=== PATIENT | male | born 1960 | race Caucasian/White ===

== ENCOUNTER 2018-06-20 12:42 | Inpatient (IN) | payer OTHER ==
[~2018-06-20] VITALS: Ht 185.4 cm; Wt 61.1 kg
--- NOTE | ~2018-06-20 | OP ---
PATIENT NAME: TOMAS EDWARD MEDICAL RECORD: [id number] :58 LOCATION:[facility] D.CV04 ADMISSION DATE:06/20/18 SURGEON: CASEY RUIZ MD DATE OF OPERATION: 06/27/2018 SURGEON: Casey Ruiz MD ANESTHESIA: General, Dr. Olmedo. SUPERVISOR CUSTOMER COMPLAINT SERVICE: Dr. Turk. OPERATION PERFORMED: 1. Right thoracotomy and right middle and lower lobe resection. 2. Flexible fiberoptic bronchoscopy. PREOPERATIVE DIAGNOSIS: Stage IV non-small cell carcinoma, right lung. POSTOPERATIVE DIAGNOSIS: Stage IV non-small cell carcinoma, right lung. INDICATION FOR OPERATION: Paraneoplastic syndrome. FINDINGS OF THE OPERATION: The tumor was adherent to the chest wall, but did not appear to be invading the chest wall. The large tumor was densely adherent to pulmonary artery and pulmonary vein. The tumor also had spread to the level 10 nodes in the hilum. Clinically, the nodes were densely adherent and could not be dissected free of the vascular structures to the upper lobe. The tumor invaded the bronchus of the middle lobe and required a bilobectomy. DESCRIPTION OF PROCEDURE: After informed consent, adequate preoperative medication evaluation, the patient was brought to the operating room, placed on the table in the supine position. After induction of general endotracheal anesthesia and application of appropriate monitoring devices, flexible fiberoptic bronchoscopy and placement of a double lumen tube, the patient was turned in a left lateral decubitus position and the right chest prepped and draped in a sterile field, utilizing Betadine scrub, alcohol, and Betadine solution betadine-impregnated drape was also used. A standard right posterolateral thoracotomy incision was made and dissection carried down the fascia. Hemostasis maintained with electrocautery. The fifth interspace was opened. The tumor had to be dissected free of the chest wall due to adhesions. The tumor did not appear to invade the chest wall. This was done superiorly and inferiorly. The other adhesions in the chest were more easily dissected. The inferior pulmonary ligament was dissected as well as the proximal pulmonary vein. The fissure was opened and attempts made to identify the pulmonary artery were unsuccessful. Attention was then turned toward the hilum and a circumferential incision was made in the parietal pleura. With this, dissection of the inferior bronchus was performed; however, the tumor invaded to the level of the middle lobe. Therefore, the posterior portion of the bronchus intermedius was dissected due to the dense adhesions and dissection near the pulmonary artery. Attention was turned anteriorly and the inferior pulmonary vein was dissected and we were able to divide the lower branch of the inferior pulmonary vein. With this, made the dissection in the hilum a bit easier; however, the vascular structures were adherent to numerous pathologic nodes. Dissection was then carried out anteriorly and the anterior fissure was formed with an Endo-WESLEY stapler. With this, we were able to dissect around the pulmonary artery. Due to the malignancy the pulmonary artery was entered on 3 OPERATIVE REPORT [id number] TOMAS EDWARD different occasions and the holes were closed with 6-0 Prolene sutures. One of the injuries required clamping of the pulmonary hilum. With this, we were able to easily place sutures. Dissection was then carried posteriorly and the bronchus intermedius was dissected further. The bronchus intermedius was eventually surrounded and a TA 34.8 stapler used to divide the bronchus intermedius. Testing of the upper lobe was performed. Attention was then turned back to the pulmonary artery and the pulmonary veins to the middle lobe were also divided with an Endo-WESLEY stapler. The lymph nodes in the hilum were densely adherent to the pulmonary artery; however, we were eventually able to divide the pulmonary artery utilizing #1 silks and 5-0 Prolene suture ligatures. With this divided, we were able to remove the tumor. The lung was inflated and checked for leaks. The areas of leaks were closed with 5-0 Prolene suture and Tesio. The chest was irrigated with copious amounts of antibiotic solution and normal saline. The instrument counts and sponge counts were correct times 2. Two #36 chest tubes were placed, one anteriorly and superiorly and one inferiorly and posteriorly. Chest was again irrigated. Instrument count and sponge counts correct. Chest was closed in layers utilizing #2 Vicryl pericostal sutures, #1 Vicryl on the latissimus dorsi, 2-0 Vicryl on the subcutaneous fascia and skin approximated with skin christie. Sterile dressings were applied. The patient tolerated the procedure well and transferred to the ICU in stable condition. TRANSINT:[id number] Voice Confirmation ID: [id number] DOCUMENT ID: [id number] CASEY RUIZ MD at 1001 CC: [id number] DICTATION DATE: 06/27/18 1534 SINKER WINDER: 06/27/182025 ADM IN [facility] [address] [id number]
--- NOTE | ~2018-06-20 | MORECARE ---
CASE MANAGEMENT DISCHARGE SUMMARY PATIENT: TOMAS EDWARD UNIT: [id number] ADM DATE: 06/20/18 AGE: 57 : 58 SEX: M ROOM/BED: D.2240 AUTHOR: KANCHAN RUTLEDGE PHYSICIAN: REFERRING PHYSICIAN: WENDY ABRAHAM MD DATE OF SERVICE: 06/21/18 Discharge Plan Patient Name: [facility]AS EDWARD [facility] [facility] 1960 Planned Disposition: Home Anticipated Discharge Date: Discharge Date: Expected LOS: Initial Reviewer: [email or web address] Initial Review Date: 06/21/2018 Generated: 06/21/18 11:52 am Patient Name: TOMAS EDWARD Page 61992 at 1052 All edits/amendments must be made on the electronic document DICTATION DATE: 06/21/18 1052 BRIDGE EXPERT: SABINO 06/21/18 1052 RPT#: [id number] DC DATE: STATUS: ADM IN [facility] [address] [place] [address] END OF REPORT
--- NOTE | ~2018-06-20 | MORECARE ---
CASE MANAGEMENT DISCHARGE SUMMARY PATIENT: TOMAS EDWARD UNIT: [id number] ADM DATE: 06/20/18 AGE: 57 : 58 SEX: M ROOM/BED: D.2240 AUTHOR: MATY,DOC PHYSICIAN: REFERRING PHYSICIAN: WENDY ABRAHAM MD DATE OF SERVICE: 06/21/18 Discharge Plan Patient Name: TOMAS EDWARD Facility: [facility]:[place] : 1960 Planned Disposition: Home Anticipated Discharge Date: Discharge Date: Expected LOS: Initial Reviewer: [email or web address] Initial Review Date: 06/21/2018 Generated: 06/21/18 12:40 pm Comments DCP- Discharge Planning Updated by [email or web address]: Tiffany Goode on 06/21/18 10:[address] Patient Name: TOMAS EDWARD Admission Status: Elective Accout number: [id number] Admission Date: 06-20-2018 : 1960 Admission Diagnosis: Attending: WENDY ABRAHAM Current LOS: 1 Anticipated DC Date: Planned Disposition: Home Primary Insurance: [employer] PPO Discharge Planning Comments: CM met with patient and his to discuss discharge planning. States he lives with his in a 2 story home. He is independent with all ADL's and IADL's. States he does not have any DME or need any DME that he knows of right now. I discussed the availability of inpatient rehab, SNF and home health services. States at this time he declines need for home health and plans on returning home with his . No needs identified at this time. CM will continue to follow and assist with discharge planning/needs. Head Bucker: Tiffany Goode DCPIA - Discharge Planning Initial Assessment Updated by [email or web address]: Tiffany Goode on 06/21/18 11:32 am * Is the patient Alert and Oriented? Yes * How many steps to enter\exit or inside your home? 11/06 flight * PCP Dr. Gonzalez * Pharmacy [facility] * Preadmission Environment Home with Family * ADLs Independent * Equipment None * List name and contact numbers for known caregivers / representatives who currently or will assist patient after discharge: Milly - - [phone] * Verbal permission to speak to the caregivers and representatives has been obtained from the patient. Yes * Community resources currently utilized None * Additional services required to return to the preadmission environment? No * Can the patient safely return to the preadmission environment? Yes * Has this patient been hospitalized within the prior 30 days at any hospital? No Last DP export: 06/21/18 10:33 Patient Name: TOMAS EDWARD Page 94064 at 1140 All edits/amendments must be made on the electronic document DICTATION DATE: 06/21/181138 PAPER WRAPPING MACHINE OPERATOR: SABINO 06/21/181138 RPT#: [id number] DC DATE: STATUS: ADM IN [facility] [address] [place] [address] END OF REPORT
--- NOTE | ~2018-06-20 | MORECARE ---
CASE MANAGEMENT DISCHARGE SUMMARY PATIENT: TOMAS EDWARD UNIT: [id number] ADM DATE: 06/20/18 AGE: 57 : 58 SEX: M ROOM/BED: D.2240 AUTHOR: KANCHAN RUTLEDGE PHYSICIAN: REFERRING PHYSICIAN: WENDY ABRAHAM MD DATE OF SERVICE: 06/21/18 Discharge Plan Patient Name: TOMAS EDWARD [facility] [facility] 1960 Planned Disposition: Home Anticipated Discharge Date: Discharge Date: Expected LOS: Initial Reviewer: [email or web address] Initial Review Date: 06/21/2018 Generated: 06/21/18 12:33 pm DCPIA - Discharge Planning Initial Assessment Updated by [email or web address]: Tiffany Goode on 06/21/18 11:32 am * Is the patient Alert and Oriented? Yes * How many steps to enter\exit or inside your home? 11/06 flight * PCP Dr. Gonzalez * Pharmacy [facility] * Preadmission Environment Home with Family * ADLs Independent * Equipment None * List name and contact numbers for known caregivers / representatives who currently or will assist patient after discharge: Milly [facility] - [phone] * Verbal permission to speak to the caregivers and representatives has been obtained from the patient. Yes * Community resources currently utilized None * Additional services required to return to the preadmission environment? No * Can the patient safely return to the preadmission environment? Yes * Has this patient been hospitalized within the prior 30 days at any hospital? No Last DP export: 06/21/18 9:52 Patient Name: TOMAS EDWARD Page 31200 at 1133 All edits/amendments must be made on the electronic document DICTATION DATE: 06/21/18 1133 HOSPICE FELLOW: SABINO 06/21/18 1133 RPT#: [id number] DC DATE: STATUS: ADM IN [facility] [address] [place] [address] END OF REPORT
--- NOTE | ~2018-06-20 | MORECARE ---
CASE MANAGEMENT DISCHARGE SUMMARY PATIENT: TOMAS EDWARD UNIT: [id number] ADM DATE: 06/20/18 AGE: 57 : 58 SEX: M ROOM/BED: D[facility] AUTHOR: MATY,DOC PHYSICIAN: REFERRING PHYSICIAN: WENDY ABRAHAM MD DATE OF SERVICE: 07/11/18 Discharge Plan Patient Name: TOMAS EDWARD Facility: [facility]:[place] : 1960 Planned Disposition: Home Anticipated Discharge Date: Discharge Date: 07/11/2018 Expected LOS: Initial Reviewer: [email or web address] Initial Review Date: 06/21/2018 Generated: 07/11/18 5:00 pm DCP- Discharge Planning Updated by [email or web address]: Tiffany Goode on 06/21/18 10:[address] Patient Name: TOMAS EDWARD Admission Status: Elective Accout number: [id number] Admission Date: 06-20-2018 : 1960 Admission Diagnosis: Attending: WENDY ABRAHAM Current LOS: 1 Anticipated DC Date: Planned Disposition: Home Primary Insurance: [employer] PPO Discharge Planning Comments: CM met with patient and his to discuss discharge planning. States he lives with his in a 2 story home. He is independent with all ADL's and IADL's. States he does not have any DME or need any DME that he knows of right now. I discussed the availability of inpatient rehab, SNF and home health services. States at this time he declines need for home health and plans on returning home with his . No needs identified at this time. CM will continue to follow and assist with discharge planning/needs. Credit Risk Analytics Manager: Tiffany Goode DCPIA - Discharge Planning Initial Assessment Updated by [email or web address]: Tiffany Goode on 06/21/18 11:32 am * Is the patient Alert and Oriented? Yes * How many steps to enter\exit or inside your home? 11/06 flight * PCP Dr. Gonzalez * Pharmacy [facility] [place] * Preadmission Environment Home with Family * ADLs Independent * Equipment None * List name and contact numbers for known caregivers / representatives who currently or will assist patient after discharge: Milly page - [phone] * Verbal permission to speak to the caregivers and representatives has been obtained from the patient. Yes * Community resources currently utilized None * Additional services required to return to the preadmission environment? No * Can the patient safely return to the preadmission environment? Yes * Has this patient been hospitalized within the prior 30 days at any hospital? No Last DP export: 06/21/18 10:40 Patient Name: TOMAS EDWARD Page 11209 at 1600 All edits/amendments must be made on the electronic document DICTATION DATE: 07/11/181558 CONDUCTOR/ENGINEER: SABINO 07/11/181558 RPT#: [id number] DC DATE:07/11/18 STATUS: DIS IN [facility] [address] [place] [address] END OF REPORT
--- NOTE | ~2018-06-20 | OP ---
PATIENT NAME: TOMAS EDWARD MEDICAL RECORD: [id number] :58 LOCATION:[facility].CV04 ADMISSION DATE:06/20/18 SURGEON: DMITRI MALDONADO MD DATE OF OPERATION: 07/06/2018 SURGEON: Dmitri Maldonado MD ANESTHESIA: General, Dr. Linares. OPERATION PERFORMED: Insertion of anterior superior chest tube. PREOPERATIVE DIAGNOSIS: Pneumothorax. POSTOPERATIVE DIAGNOSIS: Pneumothorax. INDICATION FOR OPERATION: Continued air leak status post thoracotomy. FINDINGS OF THE OPERATION: Chest x-ray, satisfactory placement of chest tube. DESCRIPTION OF PROCEDURE: After informed consent, adequate preoperative medication evaluation, the patient was brought to the operating room, placed on the table in the supine position. After induction of general endotracheal anesthesia and application of appropriate monitoring devices, the right chest was prepped and draped in a sterile field utilizing ChloraPrep. The chest was examined. The second interspace identified. A small incision made. A suture placed. Utilizing a 22 trocar, the tube was placed in the anterior superior right hemithorax connected to underwater seal and suction. The tube was secured. The tube was then dressed. Chest x-ray demonstrated good position. The lateral chest tube was removed. The patient tolerated the procedure well and was transferred to the CV ICU in satisfactory condition. TRANSINT:[id number] Voice Confirmation ID: [id number] DOCUMENT ID: [id number] DMITRI MALDONADO MD at 1305 CC: [id number] DICTATION DATE: 07/06/18 1542 CONTROL CLERK FOOD AND BEVERAGE: 07/06/18 1935 DIS IN 07/11/18 [facility] [address] [place] [address]
[2018-06-20 14:40] LABS: BASOPHILS 0.2 % (0-2); EOSINOPHILS 0 % (0-7); HEMOGLOBIN 10.5 g/dL (13.5-17.5); IMMATURE GRANULOCYTES 0.4 % (0-5); LYMPHOCYTES 13.2 % (15-50); MCH 29.3 pg (26.0-34.0); MCHC 32.8 g/dL (31.0-37.0); MCV 89.4 fL (80.0-100.0); MONOCYTES 12.4 % (2-11); NEUTROPHILS 73.8 % (40-80); PLATELET COUNT 113 10x3/uL (130-400); RBC 3.58 10x6/uL (4.20-6.10); RDW 15.3 % (11.5-14.5); WBC 5.1 10x3/uL (4.8-10.8)
[2018-06-20 15:02] LABS: ALBUMIN 2.6 g/dL (3.4-5.0); ALKALINE PHOSPHATASE 230 U/L (46-116); ALT (SGPT) 41 U/L (10-68); BILIRUBIN - TOTAL 0.57 mg/dL (0.2-1.3); CALC OSMOLALITY 258 mosm/kg (275-300); CALCIUM 9.3 mg/dL (8.5-10.1); CARBON DIOXIDE 26.7 mmol/L (21.0-32.0); CHLORIDE - SERUM 92 mmol/L (98-107); CREATININE - SERUM 0.7 mg/dL (0.6-1.3); GLUCOSE 130 mg/dL (74-106); POTASSIUM - SERUM 4.1 mmol/L (3.5-5.1); PROTEIN - SERUM 7.7 g/dL (6.4-8.2); SODIUM 127 mmol/L (136-145); UREA NITROGEN 18 mg/dL (7-18); eGFR NON AFRICAN AMERICAN > 90 mL/min (90-120)
[2018-06-20] MEDS ORDERED: ZOFRAN4 MG PO (16:09)
[2018-06-20] MEDS ORDERED: ACETAMINOPHEN500 M1 PO (16:10)
[2018-06-20] MEDS ORDERED: FOLIC ACID1 MG PO (16:11)
[2018-06-20] MEDS ORDERED: AMOXICILLIN875 MG PO (16:12)
[2018-06-20] MEDS ORDERED: MIRALAX17 GM PO (16:13)
[2018-06-20] MEDS ORDERED: NASACORT10.8 ML NASAL (16:14)
[2018-06-20 16:15] VITALS: BP 137/91; BMI 18.5
[2018-06-20 20:00] VITALS: BP 106/66
[2018-06-21 05:00] VITALS: BP 114/73
[2018-06-21 08:26] VITALS: BP 113/74
[2018-06-21 10:17] VITALS: Ht 185.4 cm; Wt 61.1 kg
[2018-06-21 12:16] VITALS: BP 139/78
[2018-06-21 17:05] VITALS: BP 125/76
[2018-06-21 20:00] VITALS: BP 115/65
[2018-06-22 08:28] VITALS: BP 128/79
[2018-06-22 12:52] VITALS: BP 120/75
[2018-06-22 16:07] VITALS: BP 129/76
[2018-06-22 21:46] VITALS: BP 131/62
[2018-06-23 04:30] LABS: CALC OSMOLALITY 267 mosm/kg (275-300); CALCIUM 8.8 mg/dL (8.5-10.1); CHLORIDE - SERUM 97 mmol/L (98-107); CREATININE - SERUM 0.5 mg/dL (0.6-1.3); POTASSIUM - SERUM 3.4 mmol/L (3.5-5.1); SODIUM 133 mmol/L (136-145); UREA NITROGEN 8 mg/dL (7-18); eGFR NON AFRICAN AMERICAN > 90 mL/min (90-120)
[2018-06-23 04:34] LABS: GLUCOSE 179 mg/dL (74-106)
[2018-06-23 06:38] VITALS: BP 110/68
[2018-06-23 08:23] VITALS: BP 113/74
[2018-06-23 12:14] VITALS: BP 116/73
[2018-06-23 15:39] LABS: CALC OSMOLALITY 273 mosm/kg (275-300); CALCIUM 8.4 mg/dL (8.5-10.1); CARBON DIOXIDE 28.2 mmol/L (21.0-32.0); CHLORIDE - SERUM 97 mmol/L (98-107); CREATININE - SERUM 0.7 mg/dL (0.6-1.3); GLUCOSE 215 mg/dL (74-106); POTASSIUM - SERUM 3.7 mmol/L (3.5-5.1); SODIUM 134 mmol/L (136-145); UREA NITROGEN 13 mg/dL (7-18); eGFR NON AFRICAN AMERICAN > 90 mL/min (90-120)
[2018-06-23 22:09] VITALS: BP 180/65
[2018-06-24 10:45] VITALS: BP 117/72
[2018-06-24 12:31] LABS: BASOPHILS 0 % (0-2); EOSINOPHILS 0 % (0-7); HEMATOCRIT 25.4 % (42.0-54.0); HEMOGLOBIN 8.1 g/dL (13.5-17.5); IMMATURE GRANULOCYTES 0.2 % (0-5); LYMPHOCYTES 16.9 % (15-50); MCH 28.6 pg (26.0-34.0); MCHC 31.9 g/dL (31.0-37.0); MCV 89.8 fL (80.0-100.0); MEAN PLATELET VOLUME 10.2 fL (7.4-10.4); MONOCYTES 9.1 % (2-11); NEUTROPHILS 73.8 % (40-80); PLATELET COUNT 100 10x3/uL (130-400); RBC 2.83 10x6/uL (4.20-6.10); RDW 14.8 % (11.5-14.5); WBC 4.5 10x3/uL (4.8-10.8)
[2018-06-24 16:00] VITALS: BP 144/81
[2018-06-24 21:23] VITALS: BP 136/76
[2018-06-25 05:25] VITALS: BP 133/76
[2018-06-25 06:42] LABS: ALKALINE PHOSPHATASE 220 U/L (46-116); ALT (SGPT) 97 U/L (10-68); BILIRUBIN - TOTAL 0.23 mg/dL (0.2-1.3); CALCIUM 8.5 mg/dL (8.5-10.1); CARBON DIOXIDE 28.1 mmol/L (21.0-32.0); CHLORIDE - SERUM 99 mmol/L (98-107); CREATININE - SERUM 0.7 mg/dL (0.6-1.3); POTASSIUM - SERUM 3.4 mmol/L (3.5-5.1); PROTEIN - SERUM 6.7 g/dL (6.4-8.2); SODIUM 134 mmol/L (136-145); eGFR NON AFRICAN AMERICAN > 90 mL/min (90-120)
[2018-06-25 06:47] LABS: CALC OSMOLALITY 268 mosm/kg (275-300); GLUCOSE 156 mg/dL (74-106); UREA NITROGEN 8 mg/dL (7-18)
[2018-06-25 08:27] VITALS: BP 151/72
[2018-06-25 10:45] LABS: BASOPHILS 0.3 % (0-2); EOSINOPHILS 0 % (0-7); HEMOGLOBIN 8.3 g/dL (13.5-17.5); IMMATURE GRANULOCYTES 0.3 % (0-5); LYMPHOCYTES 22.7 % (15-50); MCH 29.2 pg (26.0-34.0); MCHC 31.9 g/dL (31.0-37.0); MCV 91.5 fL (80.0-100.0); MEAN PLATELET VOLUME 10.1 fL (7.4-10.4); MONOCYTES 7.1 % (2-11); NEUTROPHILS 69.6 % (40-80); PLATELET COUNT 113 10x3/uL (130-400); RBC 2.84 10x6/uL (4.20-6.10); RDW 15.5 % (11.5-14.5)
[2018-06-25 11:14] VITALS: BP 155/76
[2018-06-25 20:00] VITALS: BP 120/69
[2018-06-26] VITALS: BP 116/65
[2018-06-26 04:00] VITALS: BP 130/77
[2018-06-26 05:57] LABS: BASOPHILS 0 % (0-2); EOSINOPHILS 0 % (0-7); HEMATOCRIT 26.6 % (42.0-54.0); HEMOGLOBIN 8.4 g/dL (13.5-17.5); IMMATURE GRANULOCYTES 0.2 % (0-5); LYMPHOCYTES 16.3 % (15-50); MCH 28.5 pg (26.0-34.0); MCHC 31.6 g/dL (31.0-37.0); MCV 90.2 fL (80.0-100.0); MEAN PLATELET VOLUME 9.9 fL (7.4-10.4); MONOCYTES 8.6 % (2-11); NEUTROPHILS 74.9 % (40-80); RBC 2.95 10x6/uL (4.20-6.10); RDW 15.3 % (11.5-14.5)
[2018-06-26 06:27] LABS: PLATELET COUNT 147 10x3/uL (130-400); WBC 5.5 10x3/uL (4.8-10.8)
[2018-06-26 06:40] LABS: ALKALINE PHOSPHATASE 197 U/L (46-116); ALT (SGPT) 102 U/L (10-68); BILIRUBIN - TOTAL 0.19 mg/dL (0.2-1.3); CALC OSMOLALITY 274 mosm/kg (275-300); CALCIUM 8.7 mg/dL (8.5-10.1); CHLORIDE - SERUM 101 mmol/L (98-107); CREATININE - SERUM 0.6 mg/dL (0.6-1.3); GLUCOSE 149 mg/dL (74-106); POTASSIUM - SERUM 3.8 mmol/L (3.5-5.1); PROTEIN - SERUM 6.6 g/dL (6.4-8.2); SODIUM 137 mmol/L (136-145); UREA NITROGEN 6 mg/dL (7-18); eGFR NON AFRICAN AMERICAN > 90 mL/min (90-120)
[2018-06-26 08:12] VITALS: BP 147/85
[2018-06-26] MEDS ORDERED: PREDNISONE10 MG PO (10:30)
[2018-06-26] MEDS ORDERED: CIPRO500 MG PO (10:30)
[2018-06-26 15:20] LABS: HEMATOCRIT 26.7 % (42.0-54.0); HEMOGLOBIN 8.4 g/dL (13.5-17.5); MCH 28.4 pg (26.0-34.0); MCHC 31.5 g/dL (31.0-37.0); MCV 90.2 fL (80.0-100.0); RBC 2.96 10x6/uL (4.20-6.10); RDW 15.3 % (11.5-14.5); WBC 5.3 10x3/uL (4.8-10.8)
[2018-06-26 15:33] LABS: ALBUMIN 2.2 g/dL (3.4-5.0); ALKALINE PHOSPHATASE 199 U/L (46-116); ALT (SGPT) 91 U/L (10-68); BILIRUBIN - TOTAL 0.19 mg/dL (0.2-1.3); CALC OSMOLALITY 273 mosm/kg (275-300); CALCIUM 8.4 mg/dL (8.5-10.1); CARBON DIOXIDE 29.5 mmol/L (21.0-32.0); CHLORIDE - SERUM 100 mmol/L (98-107); CREATININE - SERUM 0.7 mg/dL (0.6-1.3); GLUCOSE 153 mg/dL (74-106); POTASSIUM - SERUM 3.4 mmol/L (3.5-5.1); PROTEIN - SERUM 6.9 g/dL (6.4-8.2); SODIUM 137 mmol/L (136-145); UREA NITROGEN 5 mg/dL (7-18); eGFR NON AFRICAN AMERICAN > 90 mL/min (90-120)
[2018-06-26 15:46] LABS: APTT 27.7 SECONDS (22.8-39.4); INR 1.21 (0.85-1.17)
[2018-06-26 16:10] VITALS: BP 134/76
[2018-06-26 19:13] LABS: APPEARANCE CLEAR (CLEAR); BILIRUBIN NEGATIVE (NEGATIVE); COLOR YELLOW (YELLOW); GLUCOSE NEGATIVE (NEGATIVE); KETONE NEGATIVE (NEGATIVE); NITRITE NEGATIVE (NEGATIVE); PROTEIN NEGATIVE (NEGATIVE); UROBILINOGEN NORMAL (NORMAL)
[2018-06-26 20:00] VITALS: BP 114/53
[2018-06-27] VITALS (40 sets, daily range): BP systolic 87–155; BP diastolic 51–99
[2018-06-28] VITALS (44 sets, daily range): BP systolic 93–138; BP diastolic 49–87
[2018-06-28 06:38] LABS: HEMATOCRIT 29.7 % (42.0-54.0); HEMOGLOBIN 9.8 g/dL (13.5-17.5); MCH 28.8 pg (26.0-34.0); MEAN PLATELET VOLUME 10.2 fL (7.4-10.4); RBC 3.4 10x6/uL (4.20-6.10); RDW 16.4 % (11.5-14.5); WBC 5.8 10x3/uL (4.8-10.8)
[2018-06-28 06:39] LABS: MCV 87.4 fL (80.0-100.0)
[2018-06-28 06:57] LABS: ALBUMIN 1.9 g/dL (3.4-5.0); ALKALINE PHOSPHATASE 112 U/L (46-116); BILIRUBIN - TOTAL 0.67 mg/dL (0.2-1.3); CARBON DIOXIDE 31.1 mmol/L (21.0-32.0); CHLORIDE - SERUM 102 mmol/L (98-107); CREATININE - SERUM 0.8 mg/dL (0.6-1.3); GLUCOSE 111 mg/dL (74-106); PROTEIN - SERUM 5.5 g/dL (6.4-8.2); SODIUM 138 mmol/L (136-145); eGFR NON AFRICAN AMERICAN > 90 mL/min (90-120)
[2018-06-28 06:59] LABS: ALT (SGPT) 40 U/L (10-68); CALC OSMOLALITY 277 mosm/kg (275-300); POTASSIUM - SERUM 4.4 mmol/L (3.5-5.1); UREA NITROGEN 14 mg/dL (7-18)
[2018-06-29] VITALS (24 sets, daily range): BP systolic 110–145; BP diastolic 51–91
[2018-06-29 06:41] LABS: HEMATOCRIT 29.1 % (42.0-54.0); HEMOGLOBIN 9.3 g/dL (13.5-17.5); MCH 28.5 pg (26.0-34.0); MCV 89.3 fL (80.0-100.0); MEAN PLATELET VOLUME 9.6 fL (7.4-10.4); RBC 3.26 10x6/uL (4.20-6.10); RDW 16.4 % (11.5-14.5); WBC 5.2 10x3/uL (4.8-10.8)
[2018-06-29 06:47] LABS: ALBUMIN 1.9 g/dL (3.4-5.0); ALKALINE PHOSPHATASE 118 U/L (46-116); ALT (SGPT) 40 U/L (10-68); BILIRUBIN - TOTAL 0.24 mg/dL (0.2-1.3); CARBON DIOXIDE 32.9 mmol/L (21.0-32.0); CHLORIDE - SERUM 99 mmol/L (98-107); CREATININE - SERUM 0.6 mg/dL (0.6-1.3); POTASSIUM - SERUM 4.6 mmol/L (3.5-5.1); PROTEIN - SERUM 5.7 g/dL (6.4-8.2); SODIUM 134 mmol/L (136-145); eGFR NON AFRICAN AMERICAN > 90 mL/min (90-120)
[2018-06-29 06:48] LABS: CALC OSMOLALITY 273 mosm/kg (275-300); GLUCOSE 226 mg/dL (74-106); UREA NITROGEN 10 mg/dL (7-18)
[2018-06-30] VITALS (24 sets, daily range): BP systolic 98–151; BP diastolic 61–92
[2018-06-30 06:10] LABS: HEMATOCRIT 30.2 % (42.0-54.0); HEMOGLOBIN 9.7 g/dL (13.5-17.5); MCHC 32.1 g/dL (31.0-37.0); MCV 90.1 fL (80.0-100.0); MEAN PLATELET VOLUME 9.6 fL (7.4-10.4); RBC 3.35 10x6/uL (4.20-6.10); RDW 16.4 % (11.5-14.5)
[2018-06-30 06:11] LABS: WBC 6.7 10x3/uL (4.8-10.8)
[2018-06-30 06:24] LABS: ALBUMIN 2.1 g/dL (3.4-5.0); ALKALINE PHOSPHATASE 129 U/L (46-116); BILIRUBIN - TOTAL 0.27 mg/dL (0.2-1.3); CALCIUM 8.5 mg/dL (8.5-10.1); CARBON DIOXIDE 33.1 mmol/L (21.0-32.0); CHLORIDE - SERUM 98 mmol/L (98-107); CREATININE - SERUM 0.5 mg/dL (0.6-1.3); POTASSIUM - SERUM 4.7 mmol/L (3.5-5.1); PROTEIN - SERUM 6.2 g/dL (6.4-8.2); SODIUM 134 mmol/L (136-145); UREA NITROGEN 11 mg/dL (7-18); eGFR NON AFRICAN AMERICAN > 90 mL/min (90-120)
[2018-06-30 06:25] LABS: ALT (SGPT) 61 U/L (10-68); CALC OSMOLALITY 267 mosm/kg (275-300); GLUCOSE 120 mg/dL (74-106)
[2018-07-01] VITALS (22 sets, daily range): BP systolic 122–151; BP diastolic 67–92
[2018-07-01 05:43] LABS: HEMOGLOBIN 10.6 g/dL (13.5-17.5); MCH 29.4 pg (26.0-34.0); MCHC 32.1 g/dL (31.0-37.0); MCV 91.4 fL (80.0-100.0); MEAN PLATELET VOLUME 9.5 fL (7.4-10.4); RBC 3.61 10x6/uL (4.20-6.10)
[2018-07-01 05:53] LABS: CALCIUM 8.7 mg/dL (8.5-10.1); CARBON DIOXIDE 33.6 mmol/L (21.0-32.0); CHLORIDE - SERUM 98 mmol/L (98-107); CREATININE - SERUM 0.6 mg/dL (0.6-1.3); GLUCOSE 105 mg/dL (74-106); SODIUM 136 mmol/L (136-145); eGFR NON AFRICAN AMERICAN > 90 mL/min (90-120)
[2018-07-01 05:57] LABS: CALC OSMOLALITY 273 mosm/kg (275-300); POTASSIUM - SERUM 3.9 mmol/L (3.5-5.1); UREA NITROGEN 17 mg/dL (7-18)
[2018-07-02] VITALS (25 sets, daily range): BP systolic 120–167; BP diastolic 72–100
[2018-07-02 05:49] LABS: HEMATOCRIT 36.7 % (42.0-54.0); HEMOGLOBIN 11.7 g/dL (13.5-17.5); MCHC 31.9 g/dL (31.0-37.0); MCV 91.1 fL (80.0-100.0); MEAN PLATELET VOLUME 9.1 fL (7.4-10.4); RBC 4.03 10x6/uL (4.20-6.10); RDW 16.9 % (11.5-14.5)
[2018-07-02 05:51] LABS: WBC 9.1 10x3/uL (4.8-10.8)
[2018-07-02 06:07] LABS: CALC OSMOLALITY 270 mosm/kg (275-300); CALCIUM 9.1 mg/dL (8.5-10.1); CARBON DIOXIDE 34.9 mmol/L (21.0-32.0); CHLORIDE - SERUM 96 mmol/L (98-107); CREATININE - SERUM 0.5 mg/dL (0.6-1.3); GLUCOSE 92 mg/dL (74-106); POTASSIUM - SERUM 4.4 mmol/L (3.5-5.1); SODIUM 135 mmol/L (136-145); UREA NITROGEN 15 mg/dL (7-18); eGFR NON AFRICAN AMERICAN > 90 mL/min (90-120)
[2018-07-03] VITALS (25 sets, daily range): BP systolic 111–148; BP diastolic 71–86
[2018-07-03 06:45] LABS: HEMATOCRIT 37.4 % (42.0-54.0); HEMOGLOBIN 12.1 g/dL (13.5-17.5); MCH 29.7 pg (26.0-34.0); MCHC 32.4 g/dL (31.0-37.0); MCV 91.9 fL (80.0-100.0); MEAN PLATELET VOLUME 9.2 fL (7.4-10.4); RBC 4.07 10x6/uL (4.20-6.10); RDW 17.5 % (11.5-14.5); WBC 9.4 10x3/uL (4.8-10.8)
[2018-07-03 06:46] LABS: CALC OSMOLALITY 271 mosm/kg (275-300); CALCIUM 8.8 mg/dL (8.5-10.1); CARBON DIOXIDE 33.5 mmol/L (21.0-32.0); CHLORIDE - SERUM 98 mmol/L (98-107); GLUCOSE 119 mg/dL (74-106); POTASSIUM - SERUM 3.9 mmol/L (3.5-5.1); SODIUM 135 mmol/L (136-145); UREA NITROGEN 14 mg/dL (7-18)
[2018-07-03 06:49] LABS: CREATININE - SERUM 0.7 mg/dL (0.6-1.3); eGFR NON AFRICAN AMERICAN > 90 mL/min (90-120)
[2018-07-04] VITALS (23 sets, daily range): BP systolic 99–134; BP diastolic 50–86
[2018-07-04 06:22] LABS: HEMATOCRIT 38.1 % (42.0-54.0); HEMOGLOBIN 12.1 g/dL (13.5-17.5); MCH 29.4 pg (26.0-34.0); MCHC 31.8 g/dL (31.0-37.0); MCV 92.5 fL (80.0-100.0); MEAN PLATELET VOLUME 9.2 fL (7.4-10.4); RBC 4.12 10x6/uL (4.20-6.10); RDW 17.7 % (11.5-14.5); WBC 9.1 10x3/uL (4.8-10.8)
[2018-07-04 06:51] LABS: CALC OSMOLALITY 274 mosm/kg (275-300); CALCIUM 9.2 mg/dL (8.5-10.1); CARBON DIOXIDE 32.1 mmol/L (21.0-32.0); CHLORIDE - SERUM 97 mmol/L (98-107); CREATININE - SERUM 0.7 mg/dL (0.6-1.3); GLUCOSE 115 mg/dL (74-106); POTASSIUM - SERUM 3.9 mmol/L (3.5-5.1); SODIUM 136 mmol/L (136-145); eGFR NON AFRICAN AMERICAN > 90 mL/min (90-120)
[2018-07-04 06:53] LABS: UREA NITROGEN 19 mg/dL (7-18)
[2018-07-05] VITALS (24 sets, daily range): BP systolic 116–150; BP diastolic 68–98
[2018-07-05 06:21] LABS: HEMATOCRIT 34.9 % (42.0-54.0); HEMOGLOBIN 11.1 g/dL (13.5-17.5); MCH 29.2 pg (26.0-34.0); MCHC 31.8 g/dL (31.0-37.0); MCV 91.8 fL (80.0-100.0); MEAN PLATELET VOLUME 8.9 fL (7.4-10.4); RBC 3.8 10x6/uL (4.20-6.10); RDW 17.4 % (11.5-14.5); WBC 8.1 10x3/uL (4.8-10.8)
[2018-07-05 06:42] LABS: CALC OSMOLALITY 275 mosm/kg (275-300); CALCIUM 8.9 mg/dL (8.5-10.1); CARBON DIOXIDE 31.7 mmol/L (21.0-32.0); CHLORIDE - SERUM 98 mmol/L (98-107); CREATININE - SERUM 0.6 mg/dL (0.6-1.3); GLUCOSE 91 mg/dL (74-106); SODIUM 137 mmol/L (136-145); UREA NITROGEN 18 mg/dL (7-18); eGFR NON AFRICAN AMERICAN > 90 mL/min (90-120)
[2018-07-05 06:44] LABS: POTASSIUM - SERUM 4.5 mmol/L (3.5-5.1)
[2018-07-06] VITALS (27 sets, daily range): BP systolic 114–170; BP diastolic 63–106
[2018-07-06 05:47] LABS: HEMATOCRIT 34.1 % (42.0-54.0); HEMOGLOBIN 10.8 g/dL (13.5-17.5); MCH 29.2 pg (26.0-34.0); MCHC 31.7 g/dL (31.0-37.0); MCV 92.2 fL (80.0-100.0); MEAN PLATELET VOLUME 8.9 fL (7.4-10.4); RBC 3.7 10x6/uL (4.20-6.10); RDW 17.3 % (11.5-14.5); WBC 6.4 10x3/uL (4.8-10.8)
[2018-07-06 06:20] LABS: INR 1.04 (0.85-1.17); PROTIME 13.1 SECONDS (11.6-15.0)
[2018-07-06 06:26] LABS: CALC OSMOLALITY 278 mosm/kg (275-300); CALCIUM 8.9 mg/dL (8.5-10.1); CARBON DIOXIDE 30.7 mmol/L (21.0-32.0); CHLORIDE - SERUM 102 mmol/L (98-107); CREATININE - SERUM 0.6 mg/dL (0.6-1.3); GLUCOSE 82 mg/dL (74-106); POTASSIUM - SERUM 3.9 mmol/L (3.5-5.1); SODIUM 139 mmol/L (136-145); UREA NITROGEN 17 mg/dL (7-18); eGFR NON AFRICAN AMERICAN > 90 mL/min (90-120)
[2018-07-07] VITALS (19 sets, daily range): BP systolic 112–155; BP diastolic 64–92
[2018-07-07 06:47] LABS: HEMOGLOBIN 11.8 g/dL (13.5-17.5); MCH 29.4 pg (26.0-34.0); MCHC 31.9 g/dL (31.0-37.0); RBC 4.02 10x6/uL (4.20-6.10); RDW 17.1 % (11.5-14.5)
[2018-07-07 06:48] LABS: WBC 8.4 10x3/uL (4.8-10.8)
[2018-07-07 07:04] LABS: CHLORIDE - SERUM 97 mmol/L (98-107); SODIUM 137 mmol/L (136-145); UREA NITROGEN 16 mg/dL (7-18)
[2018-07-07 07:07] LABS: CALC OSMOLALITY 276 mosm/kg (275-300); CREATININE - SERUM 0.8 mg/dL (0.6-1.3); GLUCOSE 141 mg/dL (74-106); POTASSIUM - SERUM 4.5 mmol/L (3.5-5.1); eGFR NON AFRICAN AMERICAN > 90 mL/min (90-120)
[2018-07-08] VITALS (20 sets, daily range): BP systolic 114–154; BP diastolic 63–94
[2018-07-09] VITALS (24 sets, daily range): BP systolic 112–182; BP diastolic 55–89
[2018-07-10] VITALS (24 sets, daily range): BP systolic 125–154; BP diastolic 65–96
[2018-07-10 04:22] LABS: BASOPHILS 0.2 % (0-2); EOSINOPHILS 1.2 % (0-7); HEMATOCRIT 33.9 % (42.0-54.0); HEMOGLOBIN 10.7 g/dL (13.5-17.5); IMMATURE GRANULOCYTES 0.8 % (0-5); LYMPHOCYTES 25.2 % (15-50); MCH 29.4 pg (26.0-34.0); MCHC 31.6 g/dL (31.0-37.0); MCV 93.1 fL (80.0-100.0); MEAN PLATELET VOLUME 8.5 fL (7.4-10.4); NEUTROPHILS 58.6 % (40-80); RBC 3.64 10x6/uL (4.20-6.10); RDW 16.8 % (11.5-14.5); WBC 5.2 10x3/uL (4.8-10.8)
[2018-07-10 04:37] LABS: PLATELET COUNT 177 10x3/uL (130-400)
[2018-07-10 04:44] LABS: CALC OSMOLALITY 277 mosm/kg (275-300); CARBON DIOXIDE 33.4 mmol/L (21.0-32.0); CHLORIDE - SERUM 101 mmol/L (98-107); CREATININE - SERUM 0.6 mg/dL (0.6-1.3); POTASSIUM - SERUM 4.2 mmol/L (3.5-5.1); SODIUM 140 mmol/L (136-145); UREA NITROGEN 12 mg/dL (7-18); eGFR NON AFRICAN AMERICAN > 90 mL/min (90-120)
[2018-07-10 04:47] LABS: GLUCOSE 86 mg/dL (74-106)
[2018-07-11] VITALS (11 sets, daily range): BP systolic 136–179; BP diastolic 78–97
[2018-07-11] MEDS ORDERED: PREDNISONE10 MG PO (11:39)
[2018-07-11] MEDS ORDERED: ASPIRIN EC81 M1 PO (11:39)
[2018-07-11] MEDS ORDERED: Percocet-10 PO (11:39)
[2018-07-11] MEDS ORDERED: OXYCODONE-APAP1 TAB PO (12:03)
[2018-07-17] MEDS ORDERED: OXYCODONE-APAP1 T10 PO (13:39)
== END 2018-07-11 12:41 | disposition home or self-care (01) | DRG 164 ==
LOC: D.CVICU 12:42 → D.MS 12:42 → D.CVICU 06-27 10:00
PROVIDERS: Internal Medicine Cardiovascular Disease; Internal Medicine Hematology & Oncology; Internal Medicine Medical Oncology; Thoracic Surgery (Cardiothoracic Vascular Surgery)
PROC: 0W9930Z Drainage of Right Pleural Cavity with Drainage Device, Percutaneous Approach (ICD-10-PCS; 2018-06-20)
PROC: 0BTD0ZZ Resection of Right Middle Lung Lobe, Open Approach (ICD-10-PCS; 2018-06-27)
PROC: 0BTF0ZZ Resection of Right Lower Lung Lobe, Open Approach (ICD-10-PCS; principal; 2018-06-27 07:30)
DX: C34.90 Malignant neoplasm of unspecified part of unspecified bronchus or lung (principal); C78.7 Secondary malignant neoplasm of liver and intrahepatic bile duct; J95.812 Postprocedural air leak; J95.811 Postprocedural pneumothorax; D64.9 Anemia, unspecified

== ENCOUNTER → 2018-07-27 09:20 | Outpatient (CLI) | payer OTHER ==
[2018-06-21 10:17] VITALS: BMI 18.4
[~2018-07-27 09:20] MED LIST: ACETAMINOPHEN500 M1 PO; AMOXICILLIN875 MG PO; ASPIRIN EC81 M1 PO; CIPRO500 MG PO; FOLIC ACID1 MG PO; MIRALAX17 GM PO; NASACORT10.8 ML NASAL; OXYCODONE-APAP1 T10 PO; OXYCODONE-APAP1 TAB PO; PREDNISONE10 MG PO; Percocet-10 PO; ZOFRAN4 MG PO
== END | disposition home or self-care (01) ==
LOC: D.RAD 09:20
DX: C34.30 Malignant neoplasm of lower lobe, unspecified bronchus or lung (principal); Z98.890 Other specified postprocedural states; J90 Pleural effusion, not elsewhere classified

== ENCOUNTER → 2018-08-02 10:49 | Outpatient (CLI) | payer OTHER ==
[2018-06-21 10:17] VITALS: BMI 18.4
== END | disposition home or self-care (01) ==
LOC: D.RAD 10:49
DX: C34.90 Malignant neoplasm of unspecified part of unspecified bronchus or lung (principal)

== ENCOUNTER → 2018-08-04 09:28 | Outpatient (CLI) | payer OTHER ==
[2018-06-21 10:17] VITALS: BMI 18.4
== END | disposition home or self-care (01) ==
LOC: D.RAD 09:28
DX: C34.90 Malignant neoplasm of unspecified part of unspecified bronchus or lung (principal)

== ENCOUNTER → 2018-08-14 10:02 | Outpatient (CLI) | payer OTHER ==
[2018-06-21 10:17] VITALS: BMI 18.4
== END | disposition home or self-care (01) ==
LOC: D.RAD 08-11 08:00
DX: C34.90 Malignant neoplasm of unspecified part of unspecified bronchus or lung (principal)

== ENCOUNTER → 2018-08-21 09:56 | Outpatient (CLI) | payer OTHER ==
[2018-06-21 10:17] VITALS: BMI 18.4
== END | disposition home or self-care (01) ==
LOC: D.LAB 09:56
DX: C34.90 Malignant neoplasm of unspecified part of unspecified bronchus or lung (principal)